=== PATIENT | female | born 1985 | race Caucasian/White ===

== ENCOUNTER 2019-09-27 11:44 | Inpatient (IN) | payer OTHER ==
[~2019-09-27] VITALS: Ht 157.5 cm; Wt 87.1 kg
[2019-09-27] MEDS: LR 1,000 ML IV SCH ×2 (11:00→23:00)
[2019-09-27] MEDS ORDERED: LIDOCAINE MPF 2% 20 MG/1 ML, 5 ML VIAL INH ONE (11:45)
[2019-09-27] MEDS ORDERED: AMPICILLIN SODIUM 2 GM in NS 100 ML IV ONE ×2 (12:30→14:00)
[2019-09-27] MEDS ORDERED: TERBUTALINE SULFATE 1 MG/ML VIAL SUBCUT ONE (12:30)
[2019-09-27] MEDS ORDERED: BETAMET ACET/BETAMET NA PH 30 MG/5 ML VIAL IM SCH (13:00)
[2019-09-27] MEDS ORDERED: AMPICILLIN SODIUM 1 GM in NS 50 ML IV SCH ×2 (13:30→18:00)
[2019-09-27] MEDS: BETAMET ACET/BETAMET NA PH 30 MG/5 ML VIAL IM SCH (13:30)
[2019-09-27] MEDS: AMPICILLIN SODIUM 1 GM in NS 50 ML IV SCH (20:15)
[2019-09-27] MEDS ORDERED: TEMAZEPAM 15 MG CAPSULE PO PRN (22:00)
[2019-09-27] MEDS: TEMAZEPAM 15 MG CAPSULE PO PRN ×2 (22:07→23:06)
[2019-09-28] MEDS: AMPICILLIN SODIUM 1 GM in NS 50 ML IV SCH ×5 (01:40→20:00)
[2019-09-28] MEDS: BETAMET ACET/BETAMET NA PH 30 MG/5 ML VIAL IM SCH (13:33)
[2019-09-28] MEDS: TEMAZEPAM 15 MG CAPSULE PO PRN (21:47)
[2019-09-28] MEDS: LR 1,000 ML IV SCH (21:48)
[2019-09-29] MEDS: AMPICILLIN SODIUM 1 GM in NS 50 ML IV SCH ×3 (02:02→14:04)
[2019-09-29] MEDS ORDERED: AMPICILLIN SODIUM 1 GM VIAL ONE (06:35)
[2019-09-29] MEDS: LR 1,000 ML IV SCH ×3 (08:07→20:00)
[2019-09-30] MEDS: TEMAZEPAM 15 MG CAPSULE PO PRN (00:14)
[2019-09-30] MEDS: LR 1,000 ML IV SCH ×2 (06:00→20:37)
[2019-10-01] MEDS: LR 1,000 ML IV SCH (05:12)
[2019-10-02] MEDS: LR 1,000 ML IV SCH (00:48)
[2019-10-02] MEDS ORDERED: OXYTOCIN/0.9 % SODIUM CHLORIDE 1,000 ML IV SCH (09:12)
[2019-10-02] MEDS ORDERED: AMPICILLIN SODIUM 2 GM in NS 100 ML IV ONE (09:15)
[2019-10-02] MEDS ORDERED: OXYTOCIN/0.9 % SODIUM CHLORIDE 1,000 ML IV ONE (09:29)
[2019-10-02] MEDS ORDERED: AMPICILLIN SODIUM 2 GM VIAL ONE (09:30)
[2019-10-02] MEDS ORDERED: fentaNYL CITRATE/PF 100 MCG/2 ML AMP ONE (15:31)
[2019-10-02] MEDS ORDERED: ROPIVACAINE HCL/PF 0.2% 200 ML ONE (15:31)
[2019-10-02] MEDS ORDERED: LR 500 ML IV ONE (17:20)
[2019-10-02] MEDS ORDERED: FENT2mCg/mL-ROPIVA0.2%/NS EPID 200 ML EP SCH (17:30)
[2019-10-02] MEDS: AMPICILLIN SODIUM 1 GM in NS 50 ML IV SCH ×2 (17:40→22:00)
[2019-10-02] MEDS ORDERED: ACETAMINOPHEN 325 MG TABLET PO PRN (22:15)
[2019-10-03] MEDS ORDERED: OXYTOCIN/0.9 % SODIUM CHLORIDE 1,000 ML IV SCH (00:52)
[2019-10-03] MEDS ORDERED: OXYTOCIN/0.9 % SODIUM CHLORIDE 1,000 ML IV ONE (00:52)
[2019-10-03] MEDS ORDERED: ANUSOL 1 EA SUPP.RECT (PREPARATION H) RC PRN (01:00)
[2019-10-03] MEDS ORDERED: HYDROCORTISONE 0.5%, 28.35 GM TOPICAL CREAM TP PRN (01:00)
[2019-10-03] MEDS ORDERED: SENNOSIDES/DOCUSATE SODIUM 1 TAB TABLET(SENOKOT-S) PO PRN (01:00)
[2019-10-03] MEDS ORDERED: HYDROcodone/ACETAMIN 5-325 MG TAB (NORCO/ VICODIN) PO PRN (01:00)
[2019-10-03] MEDS ORDERED: DOCUSATE SODIUM 100 MG CAPSULE PO PRN (01:00)
[2019-10-03] MEDS ORDERED: DERMOPLAST SPRAY TP PRN (01:00)
[2019-10-03] MEDS ORDERED: RHO(D) IMMUNE GLOBULIN/MALTOSE 1500 UNITS/1.3 ML (WINHRO) IM PRN (01:00)
[2019-10-03] MEDS ORDERED: METHYLERGONOVINE MALEATE 0.2 MG TABLET PO PRN (01:00)
[2019-10-03] MEDS ORDERED: WITCH HAZEL LEAF 1 MED.PAD MED.PAD TP PRN (01:00)
[2019-10-03] MEDS ORDERED: LANOLIN 7 GM OINT. TP PRN (01:00)
[2019-10-03] MEDS ORDERED: DIPH-TET-PERTUS Vaccine 0.5 ML VIAL (ADACEL) I.M. PRN (01:00)
[2019-10-03] MEDS ORDERED: MEASLES,MUMPS&RUBELLA VACC/PF 12500 UNIT/0.5 ML VIAL SUBQ PRN (01:00)
[2019-10-03] MEDS: OXYCODONE/ACETAMINOPHEN 5-325 TABLET PO PRN ×3 (02:15→12:16)
[2019-10-03] MEDS: IBUPROFEN 600 MG TABLET PO SCH ×3 (06:00→17:57)
[2019-10-03] MEDS ORDERED: TEMAZEPAM 15 MG CAPSULE PO PRN (21:00)
[2019-10-04] MEDS: IBUPROFEN 600 MG TABLET PO SCH ×3 (00:59→12:35)
[2019-10-04] MEDS: OXYCODONE/ACETAMINOPHEN 5-325 TABLET PO PRN ×2 (06:33→12:36)
[2019-10-04 07:21] LABS: BASOPHILS % (AUTO) 0.3 % (0.0-2.0); EOSINOPHILS # (AUTO) 0.2 K/uL (0.0-0.4); EOSINOPHILS % (AUTO) 1.9 % (0.0-4.0); HEMATOCRIT 35.8 % (36-48); HEMOGLOBIN 11.6 g/dL (12.0-16.0); LYMPHOCYTES # (AUTO) 3.1 K/uL (1.0-5.5); LYMPHOCYTES % (AUTO) 28.8 % (20.5-51.5); MEAN CORPUSCULAR HEMOGLOBIN 29 pg (27-31); MEAN CORPUSCULAR HGB CONC 33 % (32-36); MEAN CORPUSCULAR VOLUME 89 fL (79.0-98.0); MONOCYTES # (AUTO) 0.8 K/uL (0.0-1.0); MONOCYTES % (AUTO) 7.7 % (1.7-9.3); NEUTROPHILS # (AUTO) 6.6 K/uL (1.8-7.7); NEUTROPHILS % (AUTO) 61.3 % (40.0-70.0); PLATELET COUNT (AUTO) 199 K/uL (130-430); RED BLOOD CELL COUNT(AUTO) 4.04 MIL/uL (4.2-6.2); WHITE BLOOD COUNT (AUTO) 10.8 K/uL (4.8-10.8)
== END 2019-10-04 13:00 | disposition home or self-care (01) | DRG 807 ==
LOC: SPU 11:44 → OBSVTOIN 12:15 → SPU 12:24
PROVIDERS: ADMIT Specialist; ATTEND Specialist
PROC: 10E0XZZ Delivery of Products of Conception, External Approach (ICD-10-PCS; principal; 2019-10-03)
PROC: 3E0R3BZ Introduction of Anesthetic Agent into Spinal Canal, Percutaneous Approach (ICD-10-PCS; 2019-10-03)
PROC: 00HU33Z Insertion of Infusion Device into Spinal Canal, Percutaneous Approach (ICD-10-PCS; 2019-10-03)
DX: O42.913 Preterm premature rupture of membranes, unspecified as to length of time between rupture and onset of labor, third trimester (principal); Z37.0 Single live birth; Z3A.35 35 weeks gestation of pregnancy
CPT/HCPCS: 36415; 76815; 85025; 86592; 86886; 86900; 86901; 88307; 94760; G0378; J0290; J0702; J2590; J3010; J7120

== ENCOUNTER 2020-05-29 05:41 | Day surgery (SDC) | payer OTHER ==
[2020-05-22 12:33] LABS: BASOPHILS # (AUTO) 0.1 K/uL (0.0-0.2); BASOPHILS % (AUTO) 0.7 % (0.0-2.0); EOSINOPHILS # (AUTO) 0.1 K/uL (0.0-0.4); EOSINOPHILS % (AUTO) 1.5 % (0.0-4.0); HEMATOCRIT 40.5 % (36-48); HEMOGLOBIN 13.5 g/dL (12.0-16.0); LYMPHOCYTES # (AUTO) 2.3 K/uL (1.0-5.5); LYMPHOCYTES % (AUTO) 32.1 % (20.5-51.5); MEAN CORPUSCULAR HEMOGLOBIN 30 pg (27-31); MEAN CORPUSCULAR HGB CONC 33 % (32-36); MEAN CORPUSCULAR VOLUME 89 fL (79.0-98.0); MONOCYTES # (AUTO) 0.5 K/uL (0.0-1.0); MONOCYTES % (AUTO) 6.5 % (1.7-9.3); NEUTROPHILS # (AUTO) 4.3 K/uL (1.8-7.7); NEUTROPHILS % (AUTO) 59.2 % (40.0-70.0); PLATELET COUNT (AUTO) 274 K/uL (130-430); RED BLOOD CELL COUNT(AUTO) 4.55 MIL/uL (4.2-6.2); RED CELL DISTRIBUTION WIDTH 13.2 % (9.0-15.0); WHITE BLOOD COUNT (AUTO) 7.3 K/uL (4.8-10.8)
[2020-05-22 12:38] LABS: BILIRUBIN,URINE NEGATIVE (NEGATIVE); BLOOD, URINE NEGATIVE (NEGATIVE); CLARITY/URINE CLEAR (CLEAR); COLOR,URINE YELLOW (YELLOW); GLUCOSE,URINE NEGATIVE (NEGATIVE); KETONES,URINE NEGATIVE (NEGATIVE); LEUKOCYTE ESTERASE ,URINE NEGATIVE (NEGATIVE); NITRITE, URINE NEGATIVE (NEGATIVE); PROTEIN URINE NEGATIVE (NEGATIVE); UROBILINOGEN,URINE 0.2 (0.2-1.0)
[~2020-05-29] VITALS: Ht 152.4 cm; Wt 87.5 kg
[2020-05-29 05:53] LABS: HCG,QUAL RESULT NEGATIVE (NEGATIVE)
[2020-05-29] MEDS ORDERED: CEFAZOLIN 1 GM IVPB PREMIX 50 ML IV ONE (06:55)
[2020-05-29] MEDS ORDERED: CEFAZOLIN SOD 1 GM in D5W 50 ML IV ONE (07:00)
[2020-05-29] MEDS ORDERED: NEOSTIGMINE METHYLSULFATE 1 MG/ML, 10 ML VIAL IVP ONE (07:10)
[2020-05-29] MEDS ORDERED: PROPOFOL 200MG/ 20ML VIAL (DIPRIVAN) IV ONE (07:10)
[2020-05-29] MEDS ORDERED: SEVOFLURANE 15 MIN GAS INH ONE (07:10)
[2020-05-29] MEDS ORDERED: NS IRRIG SOLN 1000 ML IR ONE (07:10)
[2020-05-29] MEDS ORDERED: fentaNYL CITRATE/PF 100 MCG/2 ML AMP IVP ONE (07:10)
[2020-05-29] MEDS ORDERED: LR 1,000 ML IV.SOLN IV ONE (07:10)
[2020-05-29] MEDS ORDERED: ROCURONIUM BROMIDE 10 MG/ML (ZEMURON) IV ONE (07:10)
[2020-05-29] MEDS ORDERED: GLYCOPYRROLATE 0.2 MG/ML VIAL IJ ONE (07:10)
[2020-05-29] MEDS ORDERED: BUPIVACAINE /EPINEPHRINE/PF 0.5% 30 ML VIAL INJ ONE (07:10)
[2020-05-29] MEDS ORDERED: SUCCINYLCHOLINE CHLORIDE 20 MG/ML(QUELICIN) IVP ONE (07:10)
[2020-05-29] MEDS ORDERED: LIDOCAINE 1% 10 MG/ML, 20 ML MDV INJ ONE (07:10)
[2020-05-29] MEDS ORDERED: METOCLOPRAMIDE HCL 10 MG/2 ML VIAL IVP ONE (07:10)
[2020-05-29] MEDS ORDERED: ONDANSETRON HCL 4 MG/2 ML VIAL IVP ONE (07:10)
[2020-05-29] MEDS ORDERED: MIDAZOLAM HCL 5 MG/5 ML VIAL IVP ONE (07:10)
[2020-05-29] MEDS ORDERED: KETOROLAC TROMETHAMINE 30 MG VIAL IVP PRN ×3 (08:15)
[2020-05-29] MEDS ORDERED: LR 1,000 ML IV SCH (08:15)
[2020-05-29] MEDS ORDERED: ONDANSETRON HCL 4 MG/2 ML VIAL IVP PRN (08:15)
[2020-05-29] MEDS ORDERED: HYDROmorphone 1 MG INJ. 1 MG/ML AMPUL IVP PRN (08:15)
[2020-05-29 10:49] VITALS: BP_SYST 112
== END 2020-05-29 10:15 | disposition home or self-care (01) ==
LOC: SDS 05:41
PROVIDERS: ATTEND Specialist
DX: Z30.2 Encounter for sterilization (principal); Z64.1 Problems related to multiparity; F32.9 Major depressive disorder, single episode, unspecified; N64.1 Fat necrosis of breast; Z79.899 Other long term (current) drug therapy; Z20.828 Contact with and (suspected) exposure to other viral communicable diseases
CPT/HCPCS: 36415; 58670; 81003; 84703 ×2; 85025; C1727; J0330; J0690; J2001; J2250; J2405; J2704; J2710; J2765; J3010; J3490 ×2; J7120; U0003; J7060